=== PATIENT | male | born 1975 | race African-American/Black ===

== ENCOUNTER 2017-09-23 00:42 | Emergency (ER) | payer OTHER ==
[2015-11-07 06:02] VITALS: BMI 26.5
[~2017-09-23 00:42] MED LIST: BACTRIM DS TABL1 TAB PO; CLEOCIN HCL150 MG PO; DILAUDID4 MG PO; NAPROSYN500 MG PO; NORCO 7.5/325 T1 TA1 PO
== END 2017-09-23 01:10 | disposition home or self-care (01) ==
LOC: D.ER 00:42
DX: M54.30 Sciatica, unspecified side (principal); F17.200 Nicotine dependence, unspecified, uncomplicated

== ENCOUNTER 2018-06-11 18:27 | Emergency (ER) | payer OTHER ==
[~2018-06-11] VITALS: Ht 180.3 cm; Wt 86.4 kg
[2018-06-11 18:36] VITALS: Ht 180.3 cm; Wt 86.4 kg
[2018-06-11] MEDS ORDERED: LOMOTIL 2.5-0.1 EAC1 PO (19:14)
[2018-06-11 19:27] VITALS: BP 110/74
== END 2018-06-11 19:29 | disposition home or self-care (01) ==
LOC: D.ER 18:27
DX: R19.7 Diarrhea, unspecified (principal); F17.200 Nicotine dependence, unspecified, uncomplicated